=== PATIENT | male | born 1955 | race Caucasian/White ===

== ENCOUNTER 2018-05-28 06:09 | Inpatient (IN) | payer BC, OTHER ==
--- NOTE | 2018-05-09 13:23 | ANES ---
Anesthesia Pre Procedure Eval HOME MEDICATIONS allopurinol 300 mg tablet 300 mg PO DAILY 04/10/18 [Last Taken Unknown] amlodipine 5 mg tablet 5 mg PO DAILY 04/10/18 [Last Taken Unknown] aspirin 81 mg tablet,delayed release 81 mg PO DAILY 04/10/18 [Last Taken Unknown ] atenolol 50 mg-chlorthalidone 25 mg tablet 1 tab PO DAILY 04/10/18 [Last Taken Unknown] cetirizine 10 mg tablet 10 mg PO DAILY 04/10/18 [Last Taken Unknown] multivitamin tablet 1 tab PO DAILY 04/10/18 [Last Taken Unknown] naproxen sodium 220 mg capsule 220 mg PO BID PRN 04/10/18 [Last Taken Unknown] ranitidine 150 mg tablet 150 mg PO DAILY 04/10/18 [Last Taken Unknown] Allergies/Adverse Reactions: Allergies Allergy/AdvReac Type Severity Reaction Status Date / Time amoxicillin Allergy rash Verified 04/10/18 11:23 - Planned Procedure Planned Procedure: Arthroplasty Total Knee Medication List Reviewed:: Yes Allergies Verified: Yes Medical History (Last Reviewed 05/09/18 @ 13:21 by Paramjit Casarez CRNA) Hayfever Onset Date: Unknown History of meniscal tear Onset Date: ~02/26/16 Hypertension Onset Date: Unknown IBS (irritable bowel syndrome) Onset Date: Unknown Psoriasis Onset Date: Unknown Right knee injury Onset Date: ~02/26/16 Sleep apnea Onset Date: Unknown Surgical History (Last Reviewed 05/09/18 @ 13:21 by Paramjit Casarez CRNA) H/O colonoscopy Onset Date: ~2015 S/P right knee arthroscopy Onset Date: ~04/12/16 excision bone spur Onset Date: Unknown Family History (Last Reviewed 05/09/18 @ 13:21 by Paramjit Casarez CRNA) Father Hypertension Mother Hypertension COPD (chronic obstructive pulmonary disease) Brother Medical history unknown Daughter Medical history unknown - Family Anesthesia History Family History:: no untoward family reactions to anesthesia - Airway/Neck/Teeth Teeth Condition: Intact - Respiratory Smoking Status: Never smoker Sleep Apnea currently treated: Yes Sleep Apnea by current assessment: Yes - Cardiovascular Patient History - Cardiac/Respiratory: Hypertension Tolerates Activity: Fair - Anesthesia Assessment and Plan ASA Class: PS, II Anesthesia Type Plan: Spinal - adductor canal block for postop analgesia Planned difficult intubation/equipment available: No
[~2018-05-28 06:09] MED LIST: MORPHINE SULFATE 15 MG TABLET.SA PO PRN; ROPIVACAINE HCL/PF 100 MG, EPINEPHrine 0.2 MG, KETOROLAC TROMETHAMINE 30 MG in NORMAL S... IJ PRN; TRANEXAMIC ACID 1,000 MG in NORMAL SALINE 100 ML IV PRN
[2018-05-28] MEDS ORDERED: ceFAZolin SODIUM 1 GM VIAL IV ONE (07:00)
[2018-05-28] MEDS: RINGER'S SOLUTION,LACTATED 1,000 ML IV PRN ×3 (07:12→10:35)
[2018-05-28] MEDS ORDERED: ONDANSETRON HCL/PF 2 MG/ML VIAL IV PRN (10:27)
[2018-05-28] MEDS ORDERED: MORPHINE SULFATE 2 MG/ML IV PRN (10:27)
[2018-05-28] MEDS ORDERED: ACETAMINOPHEN 500 MG TABLET PO PRN (10:27)
[2018-05-28] MEDS ORDERED: DEXTROSE 5%-LACTATED RINGERS 1,000 ML IV PRN (10:27)
[2018-05-28] MEDS ORDERED: MAG HYDROX/ALUMINUM HYD/SIMETH 30 ML UDC PO PRN (10:27)
[2018-05-28] MEDS ORDERED: ZOLPIDEM TARTRATE 5 MG TABLET PO PRN (10:27)
[2018-05-28] MEDS ORDERED: MAGNESIUM HYDROXIDE 30 ML UDC PO PRN (10:27)
[2018-05-28] MEDS ORDERED: diphenhydrAMINE HCL 50 MG/ML VIAL IV PRN (10:27)
--- NOTE | 2018-05-28 10:31 | OR ---
Operative Report - Dictated Report Narrative: Date: 05/28/2018 Preoperative diagnosis: Right Knee degenerative joint disease. Postoperative diagnosis: Right Knee degenerative joint disease. Procedure: Right Total knee arthroplasty. Surgeon: Last Daugherty M.D. Bead Flipper: Kodak Valadez PA-C Anesthesia: Spinal with regional block and local periarticular joint injection. Complications: None Specimens: Bone for disposal. Estimated blood loss: Minimal. Tourniquet time: 120 Minutes at 350 millimeters of mercury. Retained implants: Depuy Attune size 8 right lugged cemented posterior stabilized femoral component. Size 7 fixed-bearing cemented tibial platform. 8 by 5 millimeter posterior stabilized cross-linked tibial insert. 41 millimeter medialized patella button. Indications: Mr. Hua is a 63-year-old gentleman who has had long-standing right knee pain and arthrosis. This patient was followed in my clinic for period of time with significant complaints of right knee pain consistent with arthritic changes. He had failed conservative measures including, but not limited to, activity modification, passage of time, medications, and other conservative measures. Patient wished to proceed with surgical treatment. The risks, benefits, and alternatives were discussed in clinic. The risks of , blood clots, bleeding, infection, nerve/tendon blood vessel/ injury, malposition of components, intraoperative fracture, postoperative limited range of motion, persistent pain, failure of components, and need for additional procedures. Patient wished to proceed consent was obtained after answering all questions. Procedure: After marking the correct extremity on the floor, the patient was taken to the operating room. A timeout was performed. IV antibiotics consisting of Ancef were administered prior to the procedure. A regional followed by spinal anesthetic was induced by anesthesia, per my request, on the operative table with all bony prominences well-padded. Leonard catheter was placed, and a bump was placed under the operative side buttock. SCDs and PRISCILLA hose were utilized on the nonoperative leg. A well-padded tourniquet was applied to the operative thigh. The operative leg was then pre-scrubbed with alcohol prepped, and draped in a standard sterile fashion. After exsanguinating the extremity with an Esmarch bandage, the tourniquet was inflated. After marking out the anterior knee for standard incision centered over the patella, the skin was incised and dissected down to the joint retinaculum. The joint retinaculum was marked out as well as the horizontal axis of the patella, and a standard medial parapatellar arthrotomy was then made. The most proximal aspect of the quadriceps tendon and the patella tendon insertion were protected from release. A partial synovectomy was performed as well as a resection of the infrapatellar fat pad. The distal femoral fat pad proximal to the trochlea was also resected using cautery. The soft tissues were elevated off the medial aspect of the proximal tibia using a Cullen elevator ensuring that we did not transect the medial collateral ligament. Upon initial evaluation range of motion was approximately 5 degrees to 120 degrees of flexion. There were signs of advanced arthrosis in the medial, lateral, and patellofemoral joint spaces. There were large marginal osteophytes which were removed with a rongeur. The knee was hyperflexed and the patella was tucked laterally. Protecting the surrounding soft tissues with Homans, an entry drill was placed down the femoral canal using Whitesides line for guidance into the entry point. The intramedullary femoral alignment liss was utilized in order to cut the distal femur in 5 degrees of valgus resecting 10 millimeters of bone. Next the distal femur was sized to a size 8. A posterior referencing guide was utilized to place the distal femoral cutting block in 3 degrees of external rotation. This was pinned into place. The rotation was confirmed both visually and based on anatomic landmarks. The 4 in 1 cutting jig of the appropriate size was utilized in order to make all bony cuts. The angle wing was used to ensure no notching. Retractors were utilized in order to protect surrounding soft tissues. This cut did not result in any excessive notching. We then cut the box centered over the distal femur. This allowed for resection of the anterior and posterior cruciate ligaments. I then turned my attention to the preparation of the tibia. Using an extra medullary tibial alignment liss, 2 millimeters of bone was resected off the medial articular surface. This was made perpendicular to the mechanical axis of the joint with the alignment liss centered over the ankle mortise. The alignment liss was checked and was noted to be parallel to the mechanical axis, centered over the medial one third of the tibial tubercle, paralleling the anterior surface of the tibia. We then turned our attention to the remaining meniscus and soft tissues. These were removed while protecting the surrounding ligaments and soft tissues. The marginal osteophytes off the anterior, posterior, medial, lateral aspects of the femur and tibia were removed. The tibia was sized out to a size 7. Next the tibia was drilled and punched in an externally rotated position. Next the trial femur and a series of tibial inserts were utilized in order to allow for full extension and maximal flexion. It was found that a 5 millimeter insert gave the best range of motion and stability at multiple flexion points as well as at full extension there was less than 2 mm of gapping both medially and laterally. There is minimal anterior translation with the knee at 90 degrees of flexion and no signs of being able to dislocate the knee. The patella was then prepared. The initial thickness was 25 millimeters. This was reamed down to 15 millimeters parallel to the anterior surface of the patella. It was sized out to a size 41 medialized patella button. This was then drilled and trialed. Without any medial restraint the patella tracked appropriately and did not sublux or dislocate. At this point, it was felt these were the appropriate sized implants, and all trials were removed. The standard periarticular joint injection consisting of ropivacaine, Toradol, and epinephrine were injected into the periarticular joint tissues. The bony surfaces were thoroughly irrigated with a pulsatile- suction saline irrigation device. A bone plug from the prior resected anterior chamfer cut was placed into the drill hole at the distal femur. The bony surfaces were then dried in preparation for placement of the implants. The cement was vacuum mixed per the animal stunner's instructions. The cement was placed on the dry bony surfaces and posterior aspect of the implants. The implants were impacted into place, removing all extruded cement. At this point anesthesia administered tranexamic acid per protocol intravenously. The knee was placed in extension with axial loading with the trial insert while the cement cured. Once the cement cured, all remaining extruded cement was removed. The knee was placed through a range of motion with the trial insert to ensure appropriate range of motion and stability. Final range of motion was approximately 0 to 120 degrees. The knee was again thoroughly irrigated with pulsatile saline lavage. The final polyethylene insert was then impacted into place ensuring no retained soft tissues. The remaining periarticular joint injection was injected. A medium Hemovac drain was placed exiting superior laterally. The knee was then placed over a triangle and the arthrotomy was closed with interrupted #1 Vicryl after thoroughly irrigating the joint. The deep and subcutaneous tissues were closed with interrupted 0 and 3-0 Vicryl respectively. Skin was closed with a running subcutaneous 3-0 Monocryl and Prineo Dermabond dressing. 4 x 4's, Sof-Rol, and a full leg Keshawn wrap were applied. All sponge, needle, blade, and instrument counts were correct prior to closing the wounds. Postoperative condition: The patient was awoken and transferred to the postanesthesia care unit in stable condition. Plan is to be admitted to the inpatient medical/surgical floor postoperatively for 24 hours of IV antibiotics , physical therapy, occupational therapy, and medical comanagement. Patient will be weightbearing as tolerated with range of motion as tolerated. DVT prophylaxis will be with SCDs, PRISCILLA hose, and pharmacological anticoagulation. Anticipated hospital stay is approximately 1-3 days.
--- NOTE | 2018-05-28 11:08 | ANES ---
Post Anesthesia Discharge - Transfer of Care Transfer of Care handoff given to nurse: Yes - Discharge from PACU Discharge from PACU when meets criteria: Yes
[2018-05-28] MEDS: KETOROLAC TROMETHAMINE 15 MG/ML VIAL IV SCH ×3 (11:35→22:59)
--- NOTE | 2018-05-28 11:41 | ANES ---
Anesthesia Procedure Note Procedure Note: ANESTHESIA PROCEDURE NOTE Date of procedure: 05/28/2018. Time of procedure:[]. 08 00 Performed by: Manuel Casarez CRNA Apprentice Painter Brush: [] Chana Madera RN . Preprocedure diagnosis: []. Right knee DJD. Desire for postoperative analgesia. Post procedure diagnosis: Same. Procedure:[] Ultrasound-guided right adductor canal block. Indications: []. Postoperative analgesia Findings: [] Patient brought to operating room #4 placed in a supine position. Patient was given IV sedation. Patient's right thigh was prepped with ChloraPrep. Ultrasound was utilized to identify adductor canal. 1 mL of Xylocaine was injected into the skin and subcutaneous tissue at the target site. A 20-gauge 4 inch Stimuplex regional block needle was advanced under ultrasound guidance until tip of needle was located in the adductor canal. A total of 20 mL of 0.25% Marcaine with epinephrine 1-200,000 was injected with adequate spread of local anesthesia noted. Regional block needle was removed intact. EBL: Minimal. Fluids: N/A. Specimen: N/A. Post procedure condition: The patient tolerated the procedure well. No complications were noted. Thank you for this consultation Manuel Casarez CRNA
--- NOTE | 2018-05-28 11:42 | ANES ---
Post Anesthesia Assessment - Vital Signs Vitals: Last Vital Signs Temp 36.3 C 05/28/18 11:20 Pulse 46 L 05/28/18 11:20 Resp 14 05/28/18 11:20 BP 141/70 05/28/18 11:20 Pulse Ox 99 05/28/18 11:20 Airway Patency: Normal - Mental Status Level Of Consciousness: Awake - Pain Level Pain Score: 0 - N/V Assessment Nausea/Vomiting Presence: None Dehydration:: No
[2018-05-28] MEDS: ceFAZolin SODIUM 1 GM in DEXTROSE 5 % IN WATER 100 ML IV SCH ×4 (13:14→20:24)
[2018-05-28] MEDS: oxyCODONE HCL/ACETAMINOPHEN 1 TAB TABLET PO PRN ×2 (16:41→23:25)
[2018-05-28] MEDS: MORPHINE SULFATE 15 MG TABLET.SA PO SCH (20:29)
[2018-05-28] MEDS ORDERED: SENNOSIDES/DOCUSATE SODIUM 1 TAB TABLET PO SCH (21:00)
[2018-05-29] MEDS: ceFAZolin SODIUM 1 GM in DEXTROSE 5 % IN WATER 100 ML IV SCH ×2 (01:37)
[2018-05-29] MEDS: KETOROLAC TROMETHAMINE 15 MG/ML VIAL IV SCH ×2 (04:45→10:34)
[2018-05-29 05:35] LABS: Anion Gap 9.3 mmol/L (6.8-13.8); BUN/Creatinine Ratio 13.7 (9.0-21.6); Calcium * 8.1 mg/dL (7.9-10.9); Carbon Dioxide 31.3 mmol/L (24-32.6); Estimated Creat Clear 94.9; Potassium 3.6 mmol/L (3.4-4.6)
[2018-05-29 05:44] LABS: Hematocrit 37.9 % (42.0-52.0); Hemoglobin 12.8 gm/dL (13.5-18.0); Mean Cell Volume 97.7 fl (78-100); Mean Corpuscular Hgb Conc 33.8 g/dl (32-36); Mean Platelet Volume 10.7 fl (8-11.3); Platelet Count 137 K/mm3 (150-450); Red Blood Count 3.88 M/mm3 (4.7-6.0); Red Cell Distribution Width 12.6 % (11.5-14.0); White Blood Count 7.8 K/mm3 (4.0-10.5)
[2018-05-29] MEDS: MORPHINE SULFATE 15 MG TABLET.SA PO SCH (08:32)
[2018-05-29] MEDS ORDERED: FAMOTIDINE 20 MG TABLET PO SCH (09:00)
[2018-05-29] MEDS ORDERED: LORATADINE 10 MG TABLET PO SCH (09:00)
[2018-05-29] MEDS ORDERED: ALLOPURINOL 300 MG TABLET PO SCH (09:00)
[2018-05-29] MEDS ORDERED: ATENOLOL/CHLORTHALIDONE 1 TAB TABLET PO SCH (09:00)
[2018-05-29] MEDS ORDERED: MULTIVITAMINS 1 CAP CAPSULE PO SCH (09:00)
[2018-05-29] MEDS ORDERED: amLODIPine BESYLATE 5 MG TABLET PO SCH (09:00)
[2018-05-29] MEDS ORDERED: ENOXAPARIN SODIUM 40 MG/0.4 ML SYRG SC SCH (09:28)
--- NOTE | 2018-05-29 12:45 | DS ---
(1) Degenerative joint disease of knee, right Problem: Chronic (2) Status post knee replacement Problem: Acute (3) Acute blood loss anemia Problem: Acute (4) Hypertension Problem: Chronic (5) Sleep apnea Problem: Chronic Description of Stay: Mr. Gonsales was admitted to the floor after undergoing right total knee arthroplasty. Tolerated this well. Was admitted to the floor postoperatively for 24 hours of IV antibiotics, pain control, medical comanagement, and occupational and physical therapy. OT and PT were consulted to assist with activities of daily living and ambulation. Was made weightbearing as tolerated with range of motion as tolerated. Pain was initially controlled with IV regimen. This was transitioned to oral once tolerating a by mouth intake. Was resumed on home diet and medications. Had a Leonard catheter inserted and the operating room which was discontinued on postoperative day 1. A drain was placed intraoperatively into the knee which was discontinued on postoperative day 1. Lovenox SCD and PRISCILLA hose were utilized for DVT prophylaxis. Vital signs remained stable to the hospital course. Serial labs were obtained which showed a final hemoglobin of 12.8 grams. BMP was reviewed and was stable. Physical examination throughout the hospital course showed an extremity that had sensation that was intact to light touch, palpable pulses, a benign wound, motor intact to the toes, ankle, and knee. Knee range of motion was approximately 5 degrees to 75 degrees. Once an oral pain regimen was tolerated and physical therapy goals were met, it was felt that they were stable for discharge to home. Instructions: Continue with weightbearing as tolerated and range of motion as tolerated. It is OK to shower on the wound if it is not draining. If you note any drainage or for comfort you can cover with dry gauze and tape. Change every 2-3 days as needed. Continue with physical therapy. Resume home diet. Report any fever over 101.5 Fahrenheit, uncontrolled pain, increased drainage, foul odor of drainage, new or increased calf pain or shortness of breath, or any other significant complaints. A 325mg dialy aspirin will be started after finishing anticoagulation if not allergic. Continue with PRISCILLA hose on the operative extremity until instructed otherwise. No driving until instructed otherwise. Follow up in approximately 10-14 days. Procedures Performed: see notes below List Procedures: Right total knee arthroplasty Results and Findings: Lab Pending Results 05/29/18 05:10: WBC 7.8, RBC 3.88 L, Hgb 12.8 L, Hct 37.9 L, MCV 97.7, MCH 33.0 H, MCHC 33.8, RDW 12.6, Plt Count 137 L, MPV 10.7 05/29/18 05:10: Sodium 140, Plasma Sodium 140, Potassium 3.6, Chloride 103, Carbon Dioxide 31.3, Anion Gap 9.3, BUN 13, Creatinine 0.95, Est GFR (Non-Af Amer) 86, BUN/Creatinine Ratio 13.7, Random Glucose 110, Calcium 8.1 Discharge Location: Home Disposition: Home self-care Condition: Good Discharge Activity: Activity as tolerated, Weight bearing, Other - with wheeled walker Discharge Diet: Low salt Referrals: Kenton Castillo MD [Primary Care Provider] - Additional Patient Instructions (free text): Outpatient Physical Therapy at [facility] rehab unit on Follow up with Dr. Daugherty on Tuesday 06/19 at 10:45am. Prescriptions (Any new or edited meds): Morphine Sulfate [Ms Contin] 15 mg PO Q12H #20 tablet.sa oxyCODONE HCL/ACETAMINOPHEN [Percocet 5 MG/325 MG] 2 tab PO Q4H PRN #90 tab PRN Reason: Moderate Pain (Pain Scale 4-6) Complete Home Medications List: Complete Home Medication List: allopurinol 300 mg tablet 300 mg PO DAILY 04/10/18 amlodipine 5 mg tablet 5 mg PO DAILY 04/10/18 atenolol 50 mg-chlorthalidone 25 mg tablet 1 tab PO DAILY 04/10/18 cetirizine 10 mg tablet 10 mg PO DAILY 04/10/18 multivitamin tablet 1 tab PO DAILY 04/10/18 ranitidine 150 mg tablet 150 mg PO DAILY 04/10/18 Enoxaparin Sodium [Lovenox] 40 mg SC Q24H #7 disp.syrin 05/29/18 Morphine Sulfate [Ms Contin] 15 mg PO Q12H #20 tablet.sa 05/29/18 Sennosides/Docusate Sodium [Senokot-S] 2 tab PO HS #30 tablet 05/29/18 oxyCODONE HCL/ACETAMINOPHEN [Percocet 5 MG/325 MG] 2 tab PO Q4H PRN #90 tab 05/29/18
[2018-05-29 13:56] VITALS: BP 146/74
== END 2018-05-29 14:20 | disposition home or self-care (01) | DRG 470 ==
LOC: MS 06:09 → EDSTATUS 10:45
PROVIDERS: ADMIT Orthopaedic Surgery; ATTEND Orthopaedic Surgery
CPT/HCPCS: 36415; 73560; 80048; 85027; 90686; 97110; 97116; 97161; 97165